=== PATIENT | female | born 1985 | race Caucasian/White ===

== ENCOUNTER 2016-07-06 12:32 | Inpatient (IN) ==
[2016-07-06] MEDS ORDERED: Famotidine 20 MG/2 ML VIAL IVP ONE (12:47)
[2016-07-06] MEDS ORDERED: Oxytocin 20 units/ LR 1000 mL 20 UNIT/1,000 ML BAG IVC ONE (12:47)
[2016-07-06] MEDS ORDERED: Clindamycin 900 MG/50 ML 900 MG/50 ML IV.SOLN IVPB ONE (12:47)
[2016-07-06] MEDS ORDERED: Metoclopramide 10 MG/2 ML VIAL IVP ONE (12:47)
[2016-07-06] MEDS ORDERED: Ringers Solution, Lactated 1,000 ML IVC ONE (12:47)
[2016-07-06] MEDS ORDERED: Ringers Solution, Lactated 1,000 ML IVC SCH ×2 (13:00→15:45)
[2016-07-06] MEDS ORDERED: Oxytocin 20 units/ LR 1000 mL 20 UNIT/1,000 ML BAG IVC SCH (13:00)
--- NOTE | 2016-07-06 13:21 | OB/GYN History & Physical ---
Date of Encounter: 07/06/16 Time of Encounter: 13:09 Assessment and Plan (1) 38 weeks gestation of Current visit: Yes Status: Acute admit to labor and delivery (2) Asymmetric IUGR affecting , antepartum Current visit: Yes Status: Acute admit for repeat c/s (3) Opioid dependence Current visit: No Status: Acute subutex maintenance Qualifiers: Substance use status: uncomplicated Qualified Code(s): F11.20 - Opioid dependence, uncomplicated (4) Tobacco use affecting , antepartum Current visit: No Status: Acute smoking cessation information provided (5) Chronic hepatitis C during , antepartum Current visit: No Status: Chronic admitted for delivery (6) History of section, low transverse Current visit: Yes Status: Acute Patient scheduled for repeat c/s History of Present Illness Chief complaint: Asymmetrical IUGR HPI: Ms. Contreras is a 31 year old female at 38w5d with EDC 07/15/2016 presents to labor and delivery for repeat c/s for asymmetrical growth and hostile intrauterine environment. Patient's case was discussed between Marcos Maher and Jonel. Patient has been noncompliant with care. Has insufficient growth. Currently in Subutex program at [facility]. Patient was scheduled for repeat c/s on 07/09/2016. Blood type O+ blood type, Hep C+, Rubella : Immune, GBS: Negative. Past Med Surg Social Fam HX - Past Medical History Source: patient Medical history: asthma, GERD, hepatitis, hypertension, migraine Psychiatric history: anxiety - Past Surgical History Surgical History: cholecystectomy (2011), other (cesareanx 2, bilateral eye surgery age 7, ) - Social History Smoking Status: Current every day smoker Smokeless Tobacco Status: No Alcohol use: none Drug use: cocaine, opiates, marijuana, IVDU Occupational status: unemployed Current living situation: Home - Independent Activity Level: Independent ambulation Recent Out of Country Travel Within the Last 8 Weeks: No Exposure or Possible Exposure to Illness During Travel: No - Family History Father Living Status: Hx Family Cardiac Disorders: Yes Obstetrical History - Pregnancies : 3 Para: 2 Term: 2 : 0 Ab's: 0 Livin Medications and Allergies Pnv95/Ferrous Fumarate/FA [ Caplet] 1 each PO DAILY 11/24/15 [History] Buprenorphine HCl [Subutex] 8 mg SL BID 04/22/16 [History] Docusate Sodium [Colace] 100 mg PO DAILY 04/22/16 [History] Ferrous Sulfate [Iron] 325 mg PO DAILY 04/22/16 [History] Ondansetron HCl [Zofran] 25 mg PO PRN PRN 04/22/16 [History] Allergies Cefaclor [From Ceclor] Allergy (Verified 07/08/15 18:26) Rash Penicillins Allergy (Verified 10/29/15 17:00) Rash Review of System OB - Constitutional Constitutional ROS IM: weight loss (5# in 2 weeks), no chills, no fever(s), no headache(s), no weakness - Cardiovascular Cardiovascular: no chest pain, no palpitations, no syncope - Respiratory Respiratory: no cough, no dyspnea - Gastrointestinal Gastrointestinal: no abdominal pain, no diarrhea, no heartburn, no nausea, no vomiting - Genitourinary Genitourinary: no abnormal vaginal bleeding, no dysuria, no flank pain, no urinary frequency, no urinary urgency, no vaginal discharge, no vaginal odor Exam - Constitutional Constitutional: well developed, well nourished, no acute distress - HEENT HEENT: Normocephaly, Mucus Membranes Moist - Neck Neck exam: full ROM, supple - Lungs Respiratory exam: CTAB - Cardiovascular Cardiovascular exam: RRR, +S1, +S2 - Abdomen Abdomen: Present: bowel sounds normal, gravid, non tender - Extremities Extremities exam: normal capillary refill, normal inspection Deep Tendon Reflex Grade: 2+ Normal (no clonus) - Uterus Uterus exam: Present: normal size - Comments Comments: FHR 135 bpm moderate variability +15x15 accels no decels noted. CAt. 1 tracing. Irregular contractions noted. Results All other labs normal. - VTE Reasons for not Prescribing Prophylaxis: Treatment not Indicated - Low risk for VTE
[2016-07-06] MEDS ORDERED: Albuterol 2.5 MG/3 ML NEBULIZER IH ONE (13:40)
[2016-07-06] MEDS ORDERED: EPHEDrine 50 MG/ML VIAL ONE (13:56)
[2016-07-06] MEDS ORDERED: *HR* Oxytocin 10 UNIT/ML VIAL IM ONE (13:56)
[2016-07-06] MEDS ORDERED: Ringers Solution, Lactated 1,000 ML ONE ×2 (14:07→15:44)
--- NOTE | 2016-07-06 14:09 | Anesthesia Evaluation PreOp ---
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 History: Denies Any Significant HX Other Medical History: Hepatic (hepatitis C) Anesthesia History: No Prior Anesthetic Complications, Past Anesthesia : Yes Alcohol Use: none Drug use: cocaine, opiates, marijuana, IVDU (last used heroin 1 year ago, on subutex) Medications and Allergies Pnv95/Ferrous Fumarate/FA [ Caplet] 1 each PO DAILY 11/24/15 [History] Buprenorphine HCl [Subutex] 8 mg SL BID 04/22/16 [History] Docusate Sodium [Colace] 100 mg PO DAILY 04/22/16 [History] Ferrous Sulfate [Iron] 325 mg PO DAILY 04/22/16 [History] Ondansetron HCl [Zofran] 25 mg PO PRN PRN 04/22/16 [History] Allergies Cefaclor [From Ceclor] Allergy (Verified 07/08/15 18:26) Rash Penicillins Allergy (Verified 10/29/15 17:00) Rash - Meds/Allergy Pre-op Review Medications Reviewed: Yes Allergies Reviewed: Yes Beta Blockers on Current Med List: No Anesthesia Results - Labs 07/06/16 13:27 Anesthesia Exam 3 Time BP 142/77 Pulse 61 O2 Sat 95% Height: 5'10''/1.78 m Weight: 163 lbs/74 kg NPO (# of Hours): 8 Pain Scale: 0 Pain Scale Used: Numeric (1 - 10) - HEENT Pupil (Motor): EOMI Mallampati: II Teeth: Poor dentition Oral Opening: Greater than 3 - DAMPENER OPERATOR LOC: Oriented DAMPENER OPERATOR Motor: Normal RUE, Normal LUE, Normal RLE, Normal LLE, Normal Face DAMPENER OPERATOR Sensory: Normal: RUE, LUE, RLE, LLE, Face - Cardiac Rhythm: Regular Murmur: None - Pulmonary Breath Sounds: bilateral Clear Respiratory Effort: Symmetrical Anesthesia Assess/Plan ASA Score: 3 Modified [place] Scale for Level of Consciousness: Cooperative, oriented, and tranquil Anesthetic Plan: General, Regional Monitoring Plan: Standard Monitors Recovery Plan: PACU
[2016-07-06 14:58] LABS: Basophils % 0.3 %; Eosinophils # 0.1 K/mcL (0.0-0.6); Hematocrit 31.3 % (35.3-44.9); Hemoglobin 10.5 g/dL (11.5-15.4); Immature Granulocytes % 0.7 % (0-4); Lymphocytes # 1.4 K/mcL (0.6-4.6); Lymphocytes % 22.5 %; Mean Corpuscular HGB Conc 33.5 g/dL (31.6-35.5); Mean Corpuscular Hemoglobin 27.8 pg (28.0-33.3); Mean Corpuscular Volume 82.8 fL (83.0-100.0); Mean Platelet Volume 10.1 fL (9.4-12.4); Monocytes # 0.3 K/mcL (0.0-1.3); Monocytes % 5.2 %; Neutrophils # 4.3 K/mcL (1.6-8.9); Platelet Count 186 K/mcL (140-400); Red Blood Count 3.78 M/mcL (3.82-4.97); Red Cell Distribution Width 13.7 % (11.5-14.5); Segmented Neutrophils % 69.3 %
[2016-07-06] MEDS ORDERED: Nitroglycerin 25 MG/250 ML INFUS..BTL IVC ONE (15:31)
[2016-07-06] MEDS ORDERED: NiCARdipine 2.5 MG/10 ML Syringe IVPB ONE (15:33)
[2016-07-06] MEDS ORDERED: *HR* HYDROmorphone (PF) 1 MG/ML SYRINGE IVP PRN ×2 (15:44→16:39)
[2016-07-06] MEDS ORDERED: Ondansetron 4 MG/2 ML VIAL IVP ONE (15:44)
--- NOTE | 2016-07-06 16:31 | OB/GYN Procedure Note ---
Section - Date of procedure: 07/06/16 Preop diagnosis: desires repeat , other (SGA, poor pnc,IUGR) Post-op diagnosis: same Procedure: repeat low transverse Surgeon: Sveta Remy Estimated blood loss (cc): 500 Anesthesiologist: Ayden Moser Arboriculture Teacher: Mk Serra Anesthesia Type: Spinal section complications: none Disposition: L&D Recovery Room Specimens: Placenta, Cord segment, Cord blood - (s) A Delivery Date: 07/06/16 Delivery Time: 15:45 Presentation: vertex Position: unknown Route of delivery: other Gender: Male Viability: Viable Pounds: 6 Ounces: 0 Gram Weight: 2725 kg at 1 minute: 8 at 5 minutes: 9 Shoulder Dystocia: not encountered Specimens collected: cord blood Placenta: complete extraction Cord: 3 umbilical vessels - Narrative Narrative: Patient was taken to the operating room and placed in supine position with left uterine displacement following the administration of spinal anesthetic. Skin was then prepped and draped in usual sterile fashion, and a timeout procedure was performed. A Pfannenstiel incision was performed through the previous surgical scar and extended down to the fascial layer until the abdominal cavity was entered. A bladder flap was then gently created with sharp dissection. A low transverse uterine incision was performed and extended bilaterally with bandage scissors. The membranes were then ruptured with clear fluid present. A viable male was delivered from a vertex presentation with scores of 8 and 9 at 1 and 5 minutes respectively and the infant weighed 6 pounds 0 ounces (2725 grams). The cord was clamped and cut, and the was handed to the nursery team. A sample of cord then cord blood was obtained and the placenta was manually removed. The uterine cavity was wiped clean with wet lap sponge. The uterine incision was closed in a layered fashion with 0 Vicryl suture in a running locking fashion. Good hemostasis was noted. The Paracolic gutters were then gently wiped clean with wet lap sponge. Inspection was then performed with good hemostasis still noted. The fascial layer was closed with 0 PDS Stratafix suture in a running nonlocking fashion. The subcutaneous layer was irrigated with sterile water and then closed with 4-0 Vicryl suture in a running nonlocking fashion, and continuing to close the skin in a running subcuticular fashion. A piece of Dermabond Prineo mesh was then applied over the incision site. Patient tolerated procedure well, all sponge needle and instrument counts reported as correct. Estimated blood loss was 500 mL. The urine in the Garner catheter was clear and yellow, and she was taken to recovery room in stable condition.
[2016-07-06] MEDS ORDERED: *HR* Morphine 2 MG/ML SYRINGE IVP PRN (16:39)
[2016-07-06] MEDS: *HR* Labetalol 20 MG/4 ML SYRINGE IVP PRN ×2 (16:51→17:46)
--- NOTE | 2016-07-06 19:12 | Anesthesia Evaluation Post Op ---
Date of Encounter: 07/06/16 Time of Encounter: 19:11 - Lungs Lungs: Clear Ascult./Percussion - Airway Airway: Non-obstructed - Cardiovascular Regular Rate, Baseline Rhythm - Mental Status Mental Status: Alert & Oriented, Answers Appropriately - Pain Pain Scale: 2 Pain Scale used: Numeric (1 - 10) - Nausea Vomiting Nausea Vomiting: Not Present - Hydration Hydration: Tolerates oral liquids, Garner catheter - Discharge PostOp Status: Transfer Patient to floor
[2016-07-06] MEDS ORDERED: Sennosides 8.6 MG TABLET PO PRN (19:37)
[2016-07-06] MEDS ORDERED: Metoclopramide 10 MG/2 ML VIAL IVP PRN (19:37)
[2016-07-06] MEDS ORDERED: Ondansetron 4 MG/2 ML VIAL IVP PRN (19:37)
[2016-07-06] MEDS ORDERED: Oxytocin 20 units/ LR 1000 mL 20 UNIT/1,000 ML BAG IV SCH (19:37)
[2016-07-06] MEDS: Ibuprofen 600 MG TABLET PO PRN (19:57)
[2016-07-06] MEDS ORDERED: BUPRENORPHINE HCL 8 MG SL SCH (21:00)
[2016-07-06] MEDS: *HR* Buprenorphine HCl 8 MG TAB.SUBL SL SCH (22:13)
[2016-07-07] MEDS: Ibuprofen 600 MG TABLET PO PRN ×3 (02:19→21:28)
[2016-07-07] MEDS: *HR* OxyCODONE/APAP 5/325 TABLET PO PRN ×2 (03:49→17:30)
[2016-07-07 04:28] LABS: Basophils % 0.2 %; Eosinophils % 0.6 %; Hematocrit 24.4 % (35.3-44.9); Immature Granulocytes % 0.5 % (0-4); Lymphocytes % 15.8 %; Mean Corpuscular HGB Conc 33.6 g/dL (31.6-35.5); Mean Corpuscular Hemoglobin 28.4 pg (28.0-33.3); Mean Corpuscular Volume 84.4 fL (83.0-100.0); Mean Platelet Volume 9.8 fL (9.4-12.4); Monocytes # 0.2 K/mcL (0.0-1.3); Monocytes % 3.7 %; Neutrophils # 4.9 K/mcL (1.6-8.9); Platelet Count 140 K/mcL (140-400); Red Blood Count 2.89 M/mcL (3.82-4.97); Red Cell Distribution Width 13.8 % (11.5-14.5); Segmented Neutrophils % 79.2 %
[2016-07-07 04:31] LABS: Hemoglobin 8.2 g/dL (11.5-15.4)
[2016-07-07] MEDS: Prenatal Vit/FA 1 EACH TABLET PO SCH (08:29)
[2016-07-07] MEDS: Simethicone 80 MG TAB.CHEW PO PRN ×2 (08:29→17:33)
[2016-07-07] MEDS: *HR* Buprenorphine HCl 8 MG TAB.SUBL SL SCH ×2 (08:37→21:28)
--- NOTE | 2016-07-07 10:28 | OB/GYN Progress Note ---
Date of Encounter: 07/07/16 Time of Encounter: 10:26 - Assessment and Plan (1) 38 weeks gestation of Current Visit: Yes Status: Acute admit to labor and delivery (2) Asymmetric IUGR affecting , antepartum Current Visit: Yes Status: Acute admit for repeat c/s (3) Opioid dependence Current Visit: No Status: Acute subutex maintenance Qualifiers: Substance use status: uncomplicated Qualified Code(s): F11.20 - Opioid dependence, uncomplicated (4) Tobacco use affecting , antepartum Current Visit: No Status: Acute smoking cessation information provided (5) Chronic hepatitis C during , antepartum Current Visit: No Status: Chronic admitted for delivery (6) History of section, low transverse Current Visit: Yes Status: Acute Patient scheduled for repeat c/s (7) Status post repeat low transverse section Current Visit: Yes Status: Acute Continue routine postop and care ambulation (8) anemia Current Visit: Yes Status: Acute increase ferrous sulfate TIDWM repeat cbc in AM Subjective - Subjective Principal diagnosis: Postop day 1 repeat c/s Interval history: Patient in bed, patient just up to bathroom with assistance. Patient denies feeling dizzy or lightheaded with ambulation. Will Plock IV at this time. +BS will advance diet to regular diet. Patient reports: appetite normal, voiding normally, ambulating normally : doing well, bottle feeding Objective - Vital Signs Latest vital signs: Vital Signs Temp Pulse Resp BP Pulse Ox 07/07/16 08:25 97.6 F 62 18 117/72 99 07/07/16 06:20 16 07/07/16 06:15 97.9 F 68 16 112/64 99 07/07/16 01:45 98.7 F 61 16 110/61 98 07/07/16 01:44 16 07/06/16 22:15 97.6 F 58 16 140/87 99 07/06/16 22:00 16 07/06/16 21:00 97.5 F L 56 16 125/66 98 07/06/16 20:30 16 07/06/16 19:30 97.7 F 60 16 142/89 98 07/06/16 18:50 98.4 F 62 18 138/94 99 Intake and Output 07/06/16 07/07/16 07/07/16 23:59 07:59 15:59 Intake Total 0 / 0 120 / 120 Output Total 750 / 750 400 / 400 Balance -750 / -750 -280 / -280 Intake: Oral 0 / 0 120 / 120 Output: Urine 200 / 200 Urethral (Garner) 200 / 200 Catheter 550 / 550 400 / 400 Other: Weight 73.4 kg 71.9 kg Patient Weight 07/07/16 23:59 Weight 71.9 kg - Exam Lungs: bilateral: normal Chest: Normal S1, Normal S2 Extremities: Present: normal Abdomen: Present: normal appearance, soft Incision: Present: normal, dry, intact Uterus: Present: normal, firm Fundal Height: 2 (U/2) Comments: light lochia, no BM +Flatus. - Labs Labs: Laboratory Results - last 24 hr 07/06/16 07/07/16 13:27 04:11 WBC 6.1 6.2 RBC 3.78 L 2.89 L Hgb 10.5 L 8.2 L D Hct 31.3 L 24.4 L MCV 82.8 L 84.4 MCH 27.8 L 28.4 MCHC 33.5 33.6 RDW 13.7 13.8 Plt Count 186 140 MPV 10.1 9.8 Immature Gran % 0.7 0.5 Seg Neutrophils % 69.3 79.2 Lymphocytes % 22.5 15.8 Monocytes % 5.2 3.7 Eosinophils % 2.0 0.6 Basophils % 0.3 0.2 Neutrophils # 4.3 4.9 Lymphocytes # 1.4 1.0 Monocytes # 0.3 0.2 Eosinophils # 0.1 0.0 Basophils # 0.0 0.0
[2016-07-08] MEDS: *HR* OxyCODONE/APAP 5/325 TABLET PO PRN ×3 (02:14→15:39)
[2016-07-08] MEDS ORDERED: Lanolin 7 G OINT...G. TP PRN (03:57)
[2016-07-08] MEDS: Ibuprofen 600 MG TABLET PO PRN ×3 (04:36→21:21)
[2016-07-08 06:20] LABS: Basophils % 0.5 %; Eosinophils # 0.1 K/mcL (0.0-0.6); Eosinophils % 1.5 %; Hematocrit 24.1 % (35.3-44.9); Hemoglobin 8.1 g/dL (11.5-15.4); Immature Granulocytes % 0.3 % (0-4); Lymphocytes # 1.2 K/mcL (0.6-4.6); Lymphocytes % 19.9 %; Mean Corpuscular HGB Conc 33.6 g/dL (31.6-35.5); Mean Corpuscular Hemoglobin 28.1 pg (28.0-33.3); Mean Corpuscular Volume 83.7 fL (83.0-100.0); Mean Platelet Volume 9.6 fL (9.4-12.4); Monocytes # 0.3 K/mcL (0.0-1.3); Monocytes % 4.6 %; Neutrophils # 4.3 K/mcL (1.6-8.9); Platelet Count 160 K/mcL (140-400); Red Blood Count 2.88 M/mcL (3.82-4.97); Segmented Neutrophils % 73.2 %
--- NOTE | 2016-07-08 08:35 | OB/GYN Progress Note ---
Date of Encounter: 07/08/16 Time of Encounter: 08:33 - Assessment and Plan (1) Status post repeat low transverse section Current Visit: Yes Status: Resolved patient wants to stay another day due to 5 day hold, cont current pain regimen, ambulation encouraged cont current inpt care Subjective - Subjective Patient reports: appetite normal, voiding normally, pain well controlled, ambulating normally [place]: doing well Objective - Vital Signs Latest vital signs: Vital Signs Temp Pulse Pulse Resp BP Pulse Ox 07/07/16 21:30 98.8 F 80 16 123/79 99 07/07/16 16:32 98.2 F 76 76 16 124/69 98 07/07/16 12:30 97.8 F 76 16 126/79 98 Intake and Output 07/07/16 07/08/16 07/08/16 23:59 07:59 15:59 Intake Total 700 / 700 240 / 240 Output Total 1650 / 1650 1300 / 1300 Balance -950 / -950 -1060 / -1060 Intake: Oral 700 / 700 240 / 240 Output: Urine 1650 / 1650 1300 / 1300 Other: Meal Dinner Percent of Meal Consumed 90% Weight 71.7 kg Patient Weight 07/08/16 23:59 Weight 71.7 kg - Exam Lungs: bilateral: normal Chest: Normal S1, Normal S2 Extremities: Present: normal Abdomen: Present: normal appearance, soft Incision: Present: normal, dry, intact Uterus: Present: firm - Labs Labs: Laboratory Results - last 24 hr 07/08/16 06:14 WBC 5.9 RBC 2.88 L Hgb 8.1 L Hct 24.1 L MCV 83.7 MCH 28.1 MCHC 33.6 RDW 14.0 Plt Count 160 MPV 9.6 Immature Gran % 0.3 Seg Neutrophils % 73.2 Lymphocytes % 19.9 Monocytes % 4.6 Eosinophils % 1.5 Basophils % 0.5 Neutrophils # 4.3 Lymphocytes # 1.2 Monocytes # 0.3 Eosinophils # 0.1 Basophils # 0.0
[2016-07-08] MEDS: Prenatal Vit/FA 1 EACH TABLET PO SCH (09:21)
[2016-07-08] MEDS: *HR* Buprenorphine HCl 8 MG TAB.SUBL SL SCH ×2 (09:21→21:22)
[2016-07-08] MEDS: Simethicone 80 MG TAB.CHEW PO PRN ×2 (15:43→21:22)
[2016-07-09] MEDS: Prenatal Vit/FA 1 EACH TABLET PO SCH (07:56)
[2016-07-09] MEDS: *HR* Buprenorphine HCl 8 MG TAB.SUBL SL SCH (07:56)
[2016-07-09] MEDS: Ibuprofen 600 MG TABLET PO PRN (07:56)
--- NOTE | 2016-07-09 08:57 | Discharge Summary ---
Date of Encounter: 07/09/16 Time of Encounter: 08:55 - Discharge Diagnosis (1) 38 weeks gestation of Priority: Secondary Status: Acute (2) Asymmetric IUGR affecting , antepartum Priority: Secondary Status: Acute (3) Opioid dependence Priority: Secondary Status: Acute Comments: continue subutex maintenance Qualifiers: Substance use status: uncomplicated Qualified Code(s): F11.20 - Opioid dependence, uncomplicated (4) Tobacco use affecting , antepartum Priority: Secondary Status: Acute Comments: smoking cessation education (5) Chronic hepatitis C during , antepartum Priority: Secondary Status: Chronic Comments: follow up with PCP (6) History of section, low transverse Priority: Secondary Status: Acute (7) Status post repeat low transverse section Priority: Primary Status: Resolved Comments: Continue routine /[facility] (8) anemia Priority: Secondary Status: Acute Comments: continue ferrous sulfate (9) Breast feeding status of mother Priority: Secondary Status: Acute Comments: support and consultation prn - Discharge Medications Prescriptions: Ibuprofen [Motrin] 600 mg PO Q6HR PRN #60 tab PRN Reason: Pain Ferrous Sulfate 325 mg PO TIDWM #90 tablet Home Medications: Pnv95/Ferrous Fumarate/FA [ Caplet] 1 each PO DAILY 11/24/15 [History] Buprenorphine HCl [Subutex] 8 mg SL BID 04/22/16 [History] Docusate Sodium [Colace] 100 mg PO DAILY 04/22/16 [History] Breast Pump [BREAST PUMP] 1 each .ROUTE AD #1 each 07/09/16 [Rx] Buprenorphine HCl [Subutex] 8 mg SL BID tab.subl 07/09/16 [Rx] Ferrous Sulfate 325 mg PO TIDWM #90 tablet 07/09/16 [Rx] Ibuprofen [Motrin] 600 mg PO Q6HR PRN #60 tab 07/09/16 [Rx] Vit/FA 1 each PO DAILY tablet 07/09/16 [Rx] Allergies/Adverse Reactions: Allergies Cefaclor [From Ceclor] Allergy (Verified 07/08/15 18:26) Rash Penicillins Allergy (Verified 10/29/15 17:00) Rash Data Procedures and tests throughout hospitalization: Laboratory Tests 07/06/16 07/07/16 07/08/16 13:27 04:11 06:14 WBC 6.1 6.2 5.9 RBC 3.78 L 2.89 L 2.88 L Hgb 10.5 L 8.2 L D 8.1 L Hct 31.3 L 24.4 L 24.1 L MCV 82.8 L 84.4 83.7 MCH 27.8 L 28.4 28.1 MCHC 33.5 33.6 33.6 RDW 13.7 13.8 14.0 Plt Count 186 140 160 MPV 10.1 9.8 9.6 Immature Gran % 0.7 0.5 0.3 Seg Neutrophils % 69.3 79.2 73.2 Lymphocytes % 22.5 15.8 19.9 Monocytes % 5.2 3.7 4.6 Eosinophils % 2.0 0.6 1.5 Basophils % 0.3 0.2 0.5 Neutrophils # 4.3 4.9 4.3 Lymphocytes # 1.4 1.0 1.2 Monocytes # 0.3 0.2 0.3 Eosinophils # 0.1 0.0 0.1 Basophils # 0.0 0.0 0.0 Date of admission: 07/06/16 12:37 Primary care physician: PCP NO Consults: 07/06/16 19:37 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 to Property Management 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 ([employer]) [CONS] Routine Reason For Exam: Reason for SW Consult: currently in subutex group Discharging clinician: Sis Smith Anticipated date of discharge: 07/09/16 - Patient Status Disposition: Home, Self-Care Condition: Good Functional capacity at discharge: independent ambulation - Discharge Instructions Follow Up With: FELICIANO,PCP [Primary Care Provider] - Javed Stewart MD [Partnered Physician] - - Diet and Activity Activity: increase activity as tolerated Diet: regular diet Hospital Course Reason for admission: section Delivery: section Episiotomy: none Laceration: none Other procedures: none complications: none Discharge diagnosis: IUP at term delivered [place] baby: male (breast feeding) Time Attestation: Total time spent providing and/or coordinating discharge services: Time Spent: Less than 30 minutes - VTE Reasons for not Prescribing Prophylaxis: Treatment not Indicated - Low risk for VTE Documentation of Mechanical Device: Intermittent pneumatic compression device Exam - Constitutional Vitals: Temp Pulse Resp BP Pulse Ox 98.1 F 70 16 123/78 99 07/08/16 19:40 07/08/16 19:40 07/08/16 19:40 07/08/16 19:40 07/08/16 19:40 General appearance IM: A&O X 3, pleasant, answers questions appropriately - Respiratory Respiratory exam: Present: CTAB - Cardiovascular Cardiovascular exam IM: Present: RRR, +S1, +S2 - GI/Abdominal GI/Abdominal exam IM: normal bowel sounds Incision: normal, dry, intact - Uterine Tone: Firm Uterus Position: 3 Fingers Below Umbilicus, Midline - Extremities Exam Extremities exam IM: Present: normal capillary refill, normal inspection - Neurological Exam Neurological exam: oriented X3, reflexes normal
[2016-07-09 08:59] VITALS: BP 132/84
== END 2016-07-09 11:41 | disposition home or self-care (01) | DRG 540 ==
LOC: 1NENULAB 12:37 → 1NENUOBS 18:57
PROVIDERS: ADMIT Obstetrics & Gynecology; ATTEND Obstetrics & Gynecology

== ENCOUNTER 2020-10-13 14:09 | Inpatient (IN) ==
[2020-10-13] MEDS ORDERED: Metoclopramide 10 MG/2 ML VIAL IVP ONE ×2 (15:30→16:22)
[2020-10-13] MEDS ORDERED: Famotidine 20 MG/2 ML VIAL IVP ONE ×2 (15:30→16:22)
[2020-10-13] MEDS ORDERED: Oxytocin 20 units/ LR 1000 mL 20 UNIT/1,000 ML BAG IVC SCH (15:30)
[2020-10-13] MEDS ORDERED: Ringers Solution, Lactated 1,000 ML IVC SCH (15:30)
[2020-10-13] MEDS ORDERED: Ringers Solution, Lactated 1,000 ML IVC ONE (15:30)
[2020-10-13] MEDS ORDERED: Oxytocin 20 units/ LR 1000 mL 20 UNIT/1,000 ML BAG IVC ONE (15:30)
[2020-10-13] MEDS ORDERED: Clindamycin 900 MG/50 ML 900 MG/50 ML IV.SOLN IVPB ONE ×2 (15:35→16:22)
[2020-10-13] MEDS ORDERED: SODIUM CHLORIDE 0.9% IVPB ONE (15:35)
[2020-10-13] MEDS ORDERED: GENTAMICIN IVPB ONE (15:35)
[2020-10-13] MEDS ORDERED: Ringers Solution, Lactated 1,000 ML ONE (15:39)
[2020-10-13] MEDS ORDERED: *HR* Labetalol 20 MG/4 ML SYRINGE IVP PRN (16:22)
[2020-10-13] MEDS ORDERED: Calcium Gluconate 1,000 MG/10 ML VIAL IVP PRN (16:22)
[2020-10-13] MEDS ORDERED: 0.9 % Sodium Chloride 1,000 ML IVC SCH (16:30)
[2020-10-13] MEDS ORDERED: Magnesium Sulf 20 gm/SW 500mL 20 GM/500 ML IV.SOLN IVC SCH (16:30)
[2020-10-13 16:33] LABS: Basophils % 0.5 %; Eosinophils # 0.2 K/mcL (0.0-0.6); Eosinophils % 2.7 %; Hemoglobin 11.5 g/dL (11.5-15.4); Immature Granulocytes % 0.3 % (0-4); Mean Corpuscular HGB Conc 32.9 g/dL (31.6-35.5); Mean Corpuscular Hemoglobin 27.4 pg (28.0-33.3); Mean Corpuscular Volume 83.5 fL (83.0-100.0); Mean Platelet Volume 10.3 fL (9.4-12.4); Monocytes # 0.4 K/mcL (0.0-1.3); Monocytes % 6.3 %; Neutrophils # 4.8 K/mcL (1.6-8.9); Platelet Count 218 K/mcL (140-400); Red Blood Count 4.19 M/mcL (3.82-4.97); Red Cell Distribution Width 13.9 % (11.5-14.5); Segmented Neutrophils % 74.2 %; White Blood Count 6.4 K/mcL (4.3-11.1)
[2020-10-13] MEDS ORDERED: *HR* Labetalol 20 MG/4 ML SYRINGE IVP ONE ×3 (16:37→17:45)
[2020-10-13 17:28] LABS: Alanine Aminotransferase 59 Units/L (7-52); Aspartate Amino Transferase 102 Units/L (13-39); BUN/Creatinine Ratio 21 (6-26); Blood Urea Nitrogen 11 mg/dL (6-20); Lactate Dehydrogenase 254 Units/L (140-271); Uric Acid 5.4 mg/dL (2.3-7.6); eGFR For African Americans > 60 (> 60); eGFR For Non-African Americans > 60 (> 60)
[2020-10-13 18:01] LABS: Adenovirus Not Detected (Not Detect); Bordetella Pertussis Not Detected (Not Detect); Chlamydophila pneumoniae Not Detected (Not Detect); Coronavirus 229E Not Detected (Not Detect); Coronavirus HKU1 Not Detected (Not Detect); Coronavirus NL63 Not Detected (Not Detect); Coronavirus OC43 Not Detected (Not Detect); Human Metapneumovirus Not Detected (Not Detect); Human Rhinovirus/Enterovirus Not Detected (Not Detect); Influenza A Subtype 2009 H1 Not Detected (Not Detect); Influenza B Not Detected (Not Detect); Mycoplasma pneumoniae Not Detected (Not Detect); Parainfluenza Virus 1 Not Detected (Not Detect); Parainfluenza Virus 2 Not Detected (Not Detect); Parainfluenza Virus 3 Not Detected (Not Detect); Parainfluenza Virus 4 Not Detected (Not Detect); Respiratory Syncytial Virus Not Detected (Not Detect); SARS-CoV-2 Not Detected (Not Detect)
[2020-10-13 18:25] LABS: Prothrombin Time 11.9 Seconds (9.4-12.1)
[2020-10-13 18:27] LABS: Activated Partial Thrombo Time 29.8 Seconds (26.0-36.0)
[2020-10-13 18:43] LABS: Hepatitis B Surface Antigen Nonreactive (Nonreactive)
[2020-10-13 19:04] LABS: Creatinine,Urine 114 mg/dL; Protein/Creatinine Ratio,Urine 0.25 mg/mg (0.00-0.20)
[2020-10-13 19:05] LABS: Amphetamine Screen,Urine Positive ng/mL (Cutoff=1000); Barbiturate Screen,Urine Negative ng/mL (Cutoff=200); Benzodiazepines Screen,Urine Negative ng/mL (Cutoff=200); Cannabinoid Screen,Urine Negative ng/mL (Cutoff = 50); Cocaine Screen,Urine Negative ng/mL (Cutoff= 300); Opiate Screen,Urine Negative ng/mL (Cutoff=300); Phencyclidine Screen,Urine Negative ng/mL (Cutoff=25)
[2020-10-13] MEDS ORDERED: Acetaminophen IV 1,000 MG/100 ML BAG IVPB ONE (19:50)
[2020-10-13] MEDS ORDERED: *HR* Midazolam HCl 2 MG/2 ML VIAL ONE (19:54)
[2020-10-13] MEDS ORDERED: *HR* Propofol 200 MG/20 ML VIAL IVP ONE (19:54)
[2020-10-13] MEDS ORDERED: Lidocaine -MPF 2% 5 ML VIAL ONE (19:54)
[2020-10-13] MEDS ORDERED: Dexamethasone 4 MG/ML VIAL ONE (19:54)
[2020-10-13] MEDS ORDERED: *HR* Succinylcholine 200 MG/10 ML VIAL IVP ONE (19:54)
[2020-10-13] MEDS ORDERED: Ondansetron 4 MG/2 ML VIAL ONE (19:54)
[2020-10-13] MEDS ORDERED: *HR* FentaNYL (PF) 100 MCG/2 ML VIAL ONE (19:54)
[2020-10-13] MEDS ORDERED: *HR* Rocuronium Bromide 50 MG/5 ML VIAL ONE (19:54)
[2020-10-13] MEDS ORDERED: Ketamine *HR* 500 MG/10 ML MDV ONE (20:06)
[2020-10-13] MEDS ORDERED: *HR* HYDROMORPHONE 2 MG/ML VIAL ONE (20:07)
[2020-10-13 20:51] LABS: HIV-1&2 Antibody & p24 Ag Nonreactive (Nonreactive)
[2020-10-13 21:19] LABS: Rubella IgG Antibody POSITIVE (POSITIVE); Varicella Zoster IgG Antibody Positive
[2020-10-13] MEDS ORDERED: Famotidine 20 MG/2 ML VIAL ONE (23:46)
[2020-10-13] MEDS ORDERED: Metoclopramide 10 MG/2 ML VIAL ONE (23:47)
[2020-10-13] MEDS ORDERED: Lidocaine HCL 4 ML Topical Solution (Laryng-O-Jet Kit Sterile Pak) TP ONE (23:51)
[2020-10-14] MEDS ORDERED: *HR* OxyCODONE Immed Rel 5 MG TABLET PO PRN (00:06)
[2020-10-14] MEDS ORDERED: *HR* HYDROmorphone (PF) 1 MG/ML SYRINGE IVP PRN (00:06)
[2020-10-14] MEDS ORDERED: Ondansetron 4 MG/2 ML VIAL IVP PRN ×2 (00:06→03:54)
[2020-10-14] MEDS ORDERED: EPHEDrine 50 MG/ML VIAL ONE (00:32)
[2020-10-14] MEDS ORDERED: *HR* Vasopressin 20 UNIT/ML VIAL ONE (00:36)
[2020-10-14] MEDS ORDERED: Ketorolac 30 MG/ML VIAL ONE (01:00)
[2020-10-14] MEDS ORDERED: *HR* Ropivacaine/PF 0.5% 20 ML VIAL ONE (01:08)
[2020-10-14] MEDS ORDERED: Sennosides 8.6 MG TABLET PO PRN (03:54)
[2020-10-14] MEDS ORDERED: Metoclopramide 10 MG/2 ML VIAL IVP PRN (03:54)
[2020-10-14] MEDS ORDERED: Calcium Gluconate 1,000 MG/10 ML VIAL IVP PRN (03:54)
[2020-10-14] MEDS ORDERED: Naloxone 0.4 MG/ML INJ IVP PRN (03:54)
[2020-10-14] MEDS ORDERED: Simethicone 80 MG TAB.CHEW PO PRN (03:54)
[2020-10-14] MEDS: Acetaminophen 325 MG TABLET PO PRN ×2 (04:45→14:49)
[2020-10-14] MEDS: Ibuprofen 600 MG TABLET PO PRN ×2 (04:45→14:49)
[2020-10-14] MEDS: Oxytocin 20 units/ LR 1000 mL 20 UNIT/1,000 ML BAG IVC SCH ×3 (04:46→08:14)
[2020-10-14] MEDS: *HR* OxyCODONE Immed Rel 5 MG TABLET PO PRN ×3 (06:35→23:18)
[2020-10-14 06:51] LABS: Basophils % 0.1 %; Eosinophils % 0.3 %; Hematocrit 28.8 % (35.3-44.9); Immature Granulocytes % 0.4 % (0-4); Lymphocytes # 0.7 K/mcL (0.6-4.6); Lymphocytes % 8.5 %; Mean Corpuscular HGB Conc 31.6 g/dL (31.6-35.5); Mean Corpuscular Hemoglobin 26.8 pg (28.0-33.3); Mean Corpuscular Volume 84.7 fL (83.0-100.0); Monocytes # 0.2 K/mcL (0.0-1.3); Monocytes % 2.1 %; Neutrophils # 6.8 K/mcL (1.6-8.9); Platelet Count 187 K/mcL (140-400); Red Cell Distribution Width 14.1 % (11.5-14.5); Segmented Neutrophils % 88.6 %; White Blood Count 7.7 K/mcL (4.3-11.1)
[2020-10-14 06:56] LABS: Hemoglobin 9.1 g/dL (11.5-15.4)
[2020-10-14 07:10] LABS: Alanine Aminotransferase 44 Units/L (7-52); Aspartate Amino Transferase 70 Units/L (13-39); eGFR For African Americans > 60 (> 60); eGFR For Non-African Americans > 60 (> 60)
[2020-10-14] MEDS: Prenatal Vit/FA 1 EACH TABLET PO SCH (08:12)
[2020-10-14] MEDS ORDERED: Magnesium Sulf 20 gm/SW 500mL 20 GM/500 ML IV.SOLN IVC SCH (16:45)
[2020-10-14] MEDS: NIFEdipine XL (24 HR) 30 MG TAB.ER.24 PO SCH (20:36)
[2020-10-15] MEDS: Acetaminophen 325 MG TABLET PO PRN ×3 (00:23→21:02)
[2020-10-15] MEDS: *HR* OxyCODONE Immed Rel 5 MG TABLET PO PRN (03:20)
[2020-10-15] MEDS: Ibuprofen 600 MG TABLET PO PRN ×3 (04:40→21:03)
[2020-10-15] MEDS ORDERED: Lidocaine -MPF 1% 5 ML AMPUL INFILT ONE (08:25)
[2020-10-15] MEDS ORDERED: Etonogestrel 68 MG IMPLANT IL ONE (08:26)
[2020-10-15] MEDS ORDERED: cloNIDine HCL 0.1 MG TABLET PO ONE (08:27)
[2020-10-15] MEDS: Prenatal Vit/FA 1 EACH TABLET PO SCH (08:55)
[2020-10-15] MEDS: NIFEdipine XL (24 HR) 30 MG TAB.ER.24 PO SCH (08:55)
[2020-10-16 05:07] LABS: Basophils % 0.6 %; Eosinophils # 0.2 K/mcL (0.0-0.6); Eosinophils % 2.8 %; Hematocrit 29.9 % (35.3-44.9); Hemoglobin 9.3 g/dL (11.5-15.4); Immature Granulocytes % 1.8 % (0-4); Lymphocytes % 14.6 %; Mean Corpuscular HGB Conc 31.1 g/dL (31.6-35.5); Mean Corpuscular Hemoglobin 27.3 pg (28.0-33.3); Mean Corpuscular Volume 87.7 fL (83.0-100.0); Mean Platelet Volume 9.6 fL (9.4-12.4); Monocytes # 0.5 K/mcL (0.0-1.3); Monocytes % 7.7 %; Neutrophils # 4.9 K/mcL (1.6-8.9); Platelet Count 237 K/mcL (140-400); Red Blood Count 3.41 M/mcL (3.82-4.97); Red Cell Distribution Width 14.9 % (11.5-14.5); Segmented Neutrophils % 72.5 %; White Blood Count 6.8 K/mcL (4.3-11.1)
[2020-10-16] MEDS: Acetaminophen 325 MG TABLET PO PRN (05:20)
[2020-10-16] MEDS: Ibuprofen 600 MG TABLET PO PRN (05:20)
[2020-10-16 05:21] LABS: Alanine Aminotransferase 68 Units/L (7-52); Aspartate Amino Transferase 123 Units/L (13-39); BUN/Creatinine Ratio 29 (6-26); Blood Urea Nitrogen 12 mg/dL (6-20); Lactate Dehydrogenase 234 Units/L (140-271); eGFR For African Americans > 60 (> 60); eGFR For Non-African Americans > 60 (> 60)
[2020-10-16 05:24] LABS: Protein/Creatinine Ratio,Urine 0.75 mg/mg (0.00-0.20)
[2020-10-16 08:37] VITALS: BP 154/88
[2020-10-16] MEDS ORDERED: Etonogestrel 68 MG IMPLANT IL ONE (09:16)
[2020-10-16] MEDS ORDERED: Lidocaine/EPI 1:100k 1% 20 ML VIAL INFILT ONE (09:17)
[2020-10-16] MEDS: Prenatal Vit/FA 1 EACH TABLET PO SCH (09:40)
[2020-10-16] MEDS: NIFEdipine XL (24 HR) 30 MG TAB.ER.24 PO SCH (09:40)
== END 2020-10-16 10:30 | disposition home or self-care (01) | DRG 540 ==
LOC: 1NENUOBS 14:09 → 1NENULAB 14:13 → 1NENUOBS 10-14 04:38
PROVIDERS: ADMIT Obstetrics & Gynecology; ATTEND Obstetrics & Gynecology